=== PATIENT | female | born 1960 | race Caucasian/White ===

== ENCOUNTER 2021-01-22 17:47 | Emergency (ER) | payer OTHER ==
[~2021-01-22] VITALS: Ht 177.8 cm; Wt 92.8 kg
--- NOTE | 2021-01-22 18:14 | NUR ---
Sudden onset of 3 sharp 10/10 pains that came and went at approx 1530 today. Pt states "and now I just don't feel well, and I'm kind of dizzy." Has lead massage therapist but has not seen them "in a while." Pt has been previously admitted for cardiology work up but denies hx of DC. Pt in bed in gown with cont table maker, spo2, bp q 30min, side rails upx2, call light in reach. in room for eval.
--- NOTE | 2021-01-22 18:27 | NUR ---
XRAY at bedside
--- NOTE | 2021-01-22 18:35 | NUR ---
LAB TOOK BLOOD TO LAB
[2021-01-22 18:37] LABS: BASOPHILS % (AUTO) 1 % (0-1); EOSINOPHILS % (AUTO) 1 % (1-7); LYMPHOCYTES % (AUTO) 49 % (22-44); MEAN CORPUSCULAR HEMOGLOBIN 32.8 pg (27.0-34.8); MEAN CORPUSCULAR HGB CONC 35.1 g/dL (32.4-35.8); MEAN PLATELET VOLUME 8.2 fL (7.4-10.4); MONOCYTES % (AUTO) 8 % (2-9); NEUTROPHILS % (AUTO) 40 % (42-75); PLATELET COUNT 257 x10^3/uL (130-400); RED BLOOD COUNT 4.23 x10^6/uL (3.82-5.3); RED CELL DISTRIBUTION WIDTH 12.7 % (9.6-15.2)
[2021-01-22 18:45] LABS: ALBUMIN 3.8 g/dL (3.4-5.0); ANION GAP 8 mmol/L (5-15); CALCIUM 9.3 mg/dL (8.5-10.1); CHLORIDE 105 mmol/L (98-107); CREATININE 0.82 mg/dL (0.55-1.02)
[2021-01-22 18:49] LABS: TROPONIN I < 0.015 ng/mL (0.000-0.045)
--- NOTE | 2021-01-22 18:56 | NUR ---
RECIEVED REPORT FROM MARCIA. PT SITING ON THIAGO WARNER. SOME LABS STILL PENDING.
[2021-01-22 19:02] VITALS: BP 168/80
[2021-01-22 19:03] LABS: MD SCAN
--- NOTE | 2021-01-22 19:07 | NUR ---
PT RESTING ON BED WITH REMOTE WITHIN REACH VSS. STATES, " HAS EXTENSIVE FAMILY HX OF HEART ISSURE AND UT , "HER DAD MOM AND HER BROTHER HAVE HAD MULTIPE HEART ISSUES."
== END 2021-01-22 19:46 | disposition home or self-care (01) ==
LOC: ED 19:40
DX: R07.89 Other chest pain (principal); R94.31 Abnormal electrocardiogram [ECG] [EKG]; I10 Essential (primary) hypertension; E78.5 Hyperlipidemia, unspecified; E78.00 Pure hypercholesterolemia, unspecified; K21.9 Gastro-esophageal reflux disease without esophagitis
CPT/HCPCS: 36415; 71045; 80048; 82040; 84484; 85025; 93005; 99285